=== PATIENT | male | born 1970 | race Caucasian/White ===

== ENCOUNTER 2017-07-20 21:24 | Inpatient (IN) | payer OTHER ==
[~2017-07-20] VITALS: Ht 172.7 cm; Wt 122.0 kg
[~2017-07-20 21:24] MED LIST: ACET-787 PO; BENA20TA PO; METF500T PO; OMEP40EC1 PO; SIMV40TA1 PO; WARF7.5T PO
[2017-07-20 22:17] VITALS: BP 132/103
--- NOTE | 2017-07-20 23:07 | NUR ---
PT TAKEN TO BED 12
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
--- NOTE | 2017-07-20 23:15 | NUR ---
Patient being evaluated by physician at bedside.
[2017-07-20] MEDS ORDERED: NACL 0.9% 1,000 ML IV ONE (23:20)
[2017-07-20] MEDS ORDERED: MORPHINE SULFATE 2 MG/ML SYR IVP ONE (23:20)
[2017-07-20] MEDS ORDERED: ONDANSETRON 4 MG/2 ML VIAL IVP ONE (23:20)
[2017-07-20 23:59] LABS: BASOPHILS # (AUTO) 0.2 K/uL (0.00-0.22); BASOPHILS % (AUTO) 4.5 % (0.0-2.0); EOSINOPHILS # (AUTO) 0.1 K/uL (0-0.4); EOSINOPHILS % (AUTO) 2.3 % (0.0-4.0); HEMATOCRIT 41.3 % (36-52); HEMOGLOBIN 13.6 g/dL (12.0-18.0); LYMPHOCYTES # (AUTO) 2.1 K/uL (2.0-11.5); MEAN CORPUSCULAR HEMOGLOBIN 26 pg (27-31); MEAN CORPUSCULAR HGB CONC 33 g/dL (33-37); MEAN CORPUSCULAR VOLUME 80 fL (80-94); MONOCYTES # (AUTO) 0.4 K/uL (0.8-1.0); MONOCYTES % (AUTO) 7.3 % (1.7-9.3); NEUTROPHILS # (AUTO) 2.1 K/uL (1.8-7.7); NEUTROPHILS % (AUTO) 43.9 % (42.2-75.2); PLATELET COUNT (AUTO) 239 K/uL (140-450); RED BLOOD CELL COUNT(AUTO) 5.17 MIL/uL (4.20-6.10); RED CELL DISTRIBUTION WIDTH 13.2 % (11.6-13.7); WHITE BLOOD COUNT (AUTO) 4.9 K/uL (4.8-10.8)
[2017-07-21 00:16] LABS: ANION GAP 15.6 (8-16); CARBON DIOXIDE 26.3 mmol/L (21-32); CREATININE 0.9 mg/dL (0.7-1.3); POTASSIUM 3.9 mmol/L (3.5-5.1)
[2017-07-21 00:21] LABS: ALBUMIN 3.4 g/dL (3.4-5.0); TOTAL BILIRUBIN 0.4 mg/dL (0.0-1.0)
--- NOTE | 2017-07-21 01:10 | NUR ---
CRITICAL ONRAD; FAX GIVEN TO DR BUNN.
[2017-07-21] MEDS ORDERED: MORPHINE SULFATE 2 MG/ML SYR IVP PRN (01:50)
[2017-07-21] MEDS ORDERED: ONDANSETRON 4 MG/2 ML VIAL IVP PRN (01:50)
--- NOTE | 2017-07-21 02:27 | NUR ---
Patient will be admitted to care of DR NAVA. Admited to MS 119A. Will go to room 119A. Belongings list completed. Report to JAY.
[2017-07-21 02:35] VITALS: BP 136/84
--- NOTE | 2017-07-21 02:35 | NUR ---
RECEIVED PT FROM ER VIA WHEELCHAIR. AAOX4. NO C/O PAIN AT THIS TIME. IV TO LEFT FA #20G, PATENT AND INTACT. INITIAL ASSESSMENT DONE. ORIENTED PT TO ROOM. SAFETY PRECAUTION IN PLACE. CALL LIGHT WITHIN REACH. WILL CONTINUE TO MONITOR.
--- NOTE | 2017-07-21 02:40 | NUR ---
PT REFUSED NGT INSERTION. EXPLAINED TO PT THE USE OF NGT BUT STILL REFUSED.
[2017-07-21] MEDS: NACL 0.9% 1,000 ML IV SCH ×2 (02:54→09:48)
--- NOTE | 2017-07-21 04:55 | NUR ---
PT SLEEPING BUT WAKES EASILY. NO S/S OF PAIN OR DISCOMFORT. CALL LIGHT WITHIN REACH.
--- NOTE | 2017-07-21 06:50 | NUR ---
PAGED DR. NAVA. MADE AWARE THAT PT REFUSED NGT INSERTION. DR. NAVA STATED "IT'S OKAY."
--- NOTE | 2017-07-21 07:00 | NUR ---
ENDORSED PT TO DAY SHIFT NURSE. PT IN STABLE CONDITION.
--- NOTE | 2017-07-21 07:15 | NUR ---
ASSUMED CONTINUITY OF CARE. NO SIGNS AND SYMPTOMS OF ACUTE DISTRESS NOTED. INITIAL ASSESSMENT DONE. EXPLAINED MD ORDER OF NGT. PT. VERBALIZED UNDERSTANDING BUT REFUSED. KEEP COMFORTABLE ON BED. CALL LIGHT WITHIN REACH.
[2017-07-21 08:00] VITALS: BP 123/76
--- NOTE | 2017-07-21 08:00 | NUR ---
Patient's Plan of Care was discussed and reviewed with APPLICATION ARCHITECT MANAGER: BEBE
[2017-07-21] MEDS ORDERED: PANTOPRAZOLE 40 MG TABEC PO SCH (09:00)
--- NOTE | 2017-07-21 09:47 | NUR ---
PATIENT HAS BEEN SCREENED AND CATEGORIZED HIGH NUTRITION RISK. PATIENT WILL BE SEEN WITHIN 1-2 DAYS OF ADMISSION. 07/21/17-07/22/[address]
--- NOTE | 2017-07-21 10:03 | NUR ---
FAXED INITIAL REVIEW TO [facility] [phone] PHONE ADELITA [phone]
--- NOTE | 2017-07-21 11:50 | NUR ---
BACK FROM RADIOLOGY VIA WHEELCHAIR. KEEP COMFORTABLE ON BED.
[2017-07-21 12:00] VITALS: BP 142/85
--- NOTE | 2017-07-21 12:15 | NUR ---
DR. PAREDES CAME, REVIEWED PT. CHART, AND SEEN PT..
--- NOTE | 2017-07-21 14:25 | NUR ---
DR. PAREDES CALLED AND SPOKE TO CHARGE NURSE, AND PER CHARGE NURSE CHERYL FREED -RN PT. CAN BE D/C HOME WITH FOLLOW UP IN [address] PAREDES.
--- NOTE | 2017-07-21 14:47 | NUR ---
INFORMED DR. PAINTER THAT PER DR. PAREDES PT. CAN BE D/C HOME WITH FOLLOW UP APPOINTMENT WITH HIM IN 1 WEEK. GOT TELEPHONE ORDER FROM DR. PAINTER OF D/C HOME WITH FOLLOW UP WITH PCP IN 1 WEEK, AND CONTINUE HOME MEDS, READ BACK AND VERIFIED. INFORMED CHARGE NURSE CHERYL ROLON.
--- NOTE | 2017-07-21 15:00 | NUR ---
EXPLAINED TO PT. ABOUT MD D/C ORDER, D/C INSTRUCTIONS AND TEACHING, DIAGNOSIS, DIET, DR. PAREDES FOLLOW UP IN 1 WEEK, PCP FOLLOW UP IN 1 WEEK, CONTINUATION OF HOME MEDS, PAIN MANAGEMENT TEACHING. VERBALIZED UNDERSTANDING.
--- NOTE | 2017-07-21 15:40 | NUR ---
D/C HOME VIA WHEELCHAIR. AWAKE, ALERT, AND ORIENTED X4. SPEECH CLEAR. NO C/O PAIN. NO SOB, NOTED. IN STABLE CONDITION. INFORMED CHARGE NURSE CHERYL ROLON.
== END 2017-07-21 15:40 | disposition home or self-care (01) | DRG 389 ==
LOC: MED 21:24 → MTU 07-21 01:53
PROVIDERS: ADMIT Hospitalist; ATTEND Internal Medicine
DX: K56.600 Partial intestinal obstruction, unspecified as to cause (principal); Z68.41 Body mass index [BMI] 40.0-44.9, adult; E66.01 Morbid (severe) obesity due to excess calories; E11.9 Type 2 diabetes mellitus without complications; K59.00 Constipation, unspecified; E78.00 Pure hypercholesterolemia, unspecified; I10 Essential (primary) hypertension; Z88.1 Allergy status to other antibiotic agents; Z88.0 Allergy status to penicillin; E78.5 Hyperlipidemia, unspecified; Z98.1 Arthrodesis status
CPT/HCPCS: 36415; 71045; 74250; 80053; 83605; 85025; 85610; 85730; 87040; 87081; 93005; 96361; 96374; 96375; 99285; J2270; J2405; J7030; Q0092

== ENCOUNTER 2018-02-28 15:08 | Emergency (ER) | payer OTHER ==
[~2018-02-28] VITALS: Ht 172.7 cm; Wt 122.5 kg
--- NOTE | 2018-02-28 15:15 | NUR ---
patient ambulated to er bed 1
[2018-02-28 15:18] VITALS: BP 152/87
--- NOTE | 2018-02-28 15:24 | NUR ---
PT C/O RLQ ABD PAIN 10/10 RADIATING TO R GROIN X 1 DAY. +N/V. ADMITS TO HEMATURIA. DENIES FEVER, CP SOB. NO OTHER COMPLAINTS. HX: DIABETES, HTN, BLOOD CLOTS, BOWEL OBSTRUCTION MEDS: ELOQUIS, NORCO, ATORVASTATIN
[2018-02-28] MEDS ORDERED: NACL 0.9% 500 ML IV ONE ×2 (16:22)
[2018-02-28] MEDS ORDERED: KETOROLAC 30 MG/ML VIAL IVP ONE (16:25)
[2018-02-28] MEDS ORDERED: ONDANSETRON 4 MG/2 ML VIAL IVP ONE (16:25)
--- NOTE | 2018-02-28 17:14 | NUR ---
PT TAKEN TO CT
--- NOTE | 2018-02-28 17:31 | NUR ---
PT BACK FROM CT
[2018-02-28] MEDS ORDERED: fentaNYL 0.05 MG/ML VIAL IVP ONE (18:00)
[2018-02-28 18:23] LABS: BASOPHILS % (AUTO) 0.7 % (0.0-2.0); EOSINOPHILS # (AUTO) 0.1 K/uL (0-0.4); EOSINOPHILS % (AUTO) 1.2 % (0.0-4.0); HEMATOCRIT 42.6 % (36-52); LYMPHOCYTES # (AUTO) 1.6 K/uL (2.0-11.5); LYMPHOCYTES % (AUTO) 28.1 % (20.5-51.1); MEAN CORPUSCULAR HEMOGLOBIN 27 pg (27-31); MEAN CORPUSCULAR HGB CONC 33 g/dL (33-37); MEAN CORPUSCULAR VOLUME 80.8 fL (80-94); MONOCYTES # (AUTO) 0.4 K/uL (0.8-1.0); MONOCYTES % (AUTO) 6.3 % (1.7-9.3); NEUTROPHILS # (AUTO) 3.7 K/uL (1.8-7.7); NEUTROPHILS % (AUTO) 63.7 % (42.2-75.2); PLATELET COUNT (AUTO) 239 K/uL (140-450); RED BLOOD CELL COUNT(AUTO) 5.27 MIL/uL (4.20-6.10); RED CELL DISTRIBUTION WIDTH 13.8 % (11.6-13.7); WHITE BLOOD COUNT (AUTO) 5.8 K/uL (4.8-10.8)
[2018-02-28 18:43] LABS: ANION GAP 12.1 (8-16); CARBON DIOXIDE 25.9 mmol/L (21-32); CREATININE 0.9 mg/dL (0.7-1.3)
[2018-02-28 18:49] LABS: ALBUMIN 3.3 g/dL (3.4-5.0); TOTAL BILIRUBIN 0.4 mg/dL (0.0-1.0)
[2018-02-28 19:01] VITALS: BP 138/78
--- NOTE | 2018-02-28 19:01 | NUR ---
Patient appears to be resting comfortably in bed. Vital Signs within normal limits. Respirations even and unlabored.
--- NOTE | 2018-02-28 19:28 | NUR ---
Patient does not wish to proceed with medical care recommended by . Patient given information related to possible complications, up to and including , which could occur as a result of leaving hospital at this time. Patient verbalizes understanding of risks involved leaving against medical advice. Patient has signed AMA form.
== END 2018-02-28 19:28 | disposition left against medical advice (07) ==
LOC: MED 15:08
DX: K56.600 Partial intestinal obstruction, unspecified as to cause (principal); E11.9 Type 2 diabetes mellitus without complications; I10 Essential (primary) hypertension; Z88.0 Allergy status to penicillin; Z88.1 Allergy status to other antibiotic agents; Z79.899 Other long term (current) drug therapy
CPT/HCPCS: 36415; 71045; 74176; 80053; 81002; 84484; 85025; 85610; 85730; 93005; 96361; 96374; 96375; 99285; J1885; J2405; J3010; J7030; Q0092

== ENCOUNTER 2018-07-26 17:00 | Emergency (ER) | payer OTHER ==
[~2018-07-26] VITALS: Ht 172.7 cm; Wt 121.1 kg
[2018-07-26 18:00] VITALS: BP 140/93
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
[2018-07-26] MEDS ORDERED: NACL 0.9% 1,000 ML IV ONE (18:30)
[2018-07-26] MEDS ORDERED: ACETAMINOPHEN EXTRA STRENGTH 500 MG TAB PO ONE (18:35)
[2018-07-26] MEDS ORDERED: LIDOCAINE 2% 1000 MG/50 ML VIAL INJ ONE (18:40)
--- NOTE | 2018-07-26 19:09 | NUR ---
REPORT GIVEN TO FABIENNE HAY AT THIS TIME FOR CONTINUITY OF CARE.
--- NOTE | 2018-07-26 19:10 | NUR ---
ASSUMED CARE OF PT FROM, FELIBERTO HAY
--- NOTE | 2018-07-26 19:46 | NUR ---
NON ADHERENT DRESSING APPLIED TO R WRIST. PT TOELRATED PROCEDURE WELL.
[2018-07-26 19:54] VITALS: BP 137/89
== END 2018-07-26 19:54 | disposition home or self-care (01) ==
LOC: MED 17:00
DX: S51.811A Laceration without foreign body of right forearm, initial encounter (principal); E11.65 Type 2 diabetes mellitus with hyperglycemia; I10 Essential (primary) hypertension; W22.8XXA Striking against or struck by other objects, initial encounter; Y93.89 Activity, other specified; Y92.89 Other specified places as the place of occurrence of the external cause; Y99.0 Civilian activity done for income or pay
CPT/HCPCS: 12002; 90471; 90715; 96360; 99283; J2001; J7030

== ENCOUNTER 2018-08-06 19:39 | Emergency (ER) | payer OTHER ==
[~2018-08-06] VITALS: Ht 172.7 cm; Wt 121.2 kg
[2018-08-06 20:09] VITALS: BP 130/87
--- NOTE | 2018-08-06 20:16 | NUR ---
Patient ambulated to bed 1. RN evaluating patient at bedside.
--- NOTE | 2018-08-06 20:16 | NUR ---
GAVE REPORT TO MADELINE HAY, PT VSS
--- NOTE | 2018-08-06 20:16 | NUR ---
PT AMBULATED TO BED #1
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
--- NOTE | 2018-08-06 22:01 | NUR ---
PATIENT LEFT WITHOUT BEING SEEN BY DR. SINHA. NO FURTHER CARE PROVIDED FOR PATIENT.
== END 2018-08-06 22:01 | disposition left against medical advice (07) ==
LOC: MED 19:39
DX: S61.511D Laceration without foreign body of right wrist, subsequent encounter (principal); W45.8XXD Other foreign body or object entering through skin, subsequent encounter; Z53.21 Procedure and treatment not carried out due to patient leaving prior to being seen by health care provider

== ENCOUNTER 2018-11-15 16:46 | Emergency (ER) | payer OTHER ==
[~2018-11-15] VITALS: Ht 172.7 cm; Wt 120.7 kg
[2018-11-15 16:51] VITALS: BP 139/64
[2018-11-15 17:56] LABS: BASOPHILS # (AUTO) 0.1 K/uL (0.00-0.22); BASOPHILS % (AUTO) 0.8 % (0.0-2.0); EOSINOPHILS # (AUTO) 0.1 K/uL (0-0.4); HEMOGLOBIN 12.7 g/dL (12.0-18.0); LYMPHOCYTES # (AUTO) 1.8 K/uL (2.0-11.5); LYMPHOCYTES % (AUTO) 26.2 % (20.5-51.1); MEAN CORPUSCULAR HEMOGLOBIN 26 pg (27-31); MEAN CORPUSCULAR HGB CONC 34 g/dL (33-37); MEAN CORPUSCULAR VOLUME 77.6 fL (80-94); MONOCYTES # (AUTO) 0.4 K/uL (0.8-1.0); MONOCYTES % (AUTO) 6.5 % (1.7-9.3); NEUTROPHILS # (AUTO) 4.4 K/uL (1.8-7.7); NEUTROPHILS % (AUTO) 64.5 % (42.2-75.2); PLATELET COUNT (AUTO) 301 K/uL (140-450); RED CELL DISTRIBUTION WIDTH 15.2 % (11.6-13.7); WHITE BLOOD COUNT (AUTO) 6.8 K/uL (4.8-10.8)
[2018-11-15 18:05] LABS: ANION GAP 12.4 (8-16); CARBON DIOXIDE 29.4 mmol/L (21-32); POTASSIUM 3.8 mmol/L (3.5-5.1)
[2018-11-15 18:13] LABS: TOTAL BILIRUBIN 0.3 mg/dL (0.0-1.0)
--- NOTE | 2018-11-15 19:30 | NUR ---
PT REPORTS N/V, DENIES FEVER, DIARRHEA OR CONSTIPATION
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
--- NOTE | 2018-11-15 19:30 | NUR ---
PT AMBULATORY TO BED 10
[2018-11-15] MEDS ORDERED: NACL 0.9% 1,000 ML IV ONE (20:07)
[2018-11-15] MEDS ORDERED: ONDANSETRON 4 MG/2 ML VIAL IVP ONE (20:10)
[2018-11-15] MEDS ORDERED: MORPHINE SULFATE 4 MG/ML SYR IVP ONE (20:10)
[2018-11-15 20:18] LABS: APPEARANCE,URINE CLEAR (CLEAR); BILIRUBIN,URINE NEGATIVE (NEGATIVE); BLOOD, URINE 2+ (NEGATIVE); COLOR,URINE YELLOW (YELLOW); LEUKOCYTE ESTERASE ,URINE NEGATIVE (NEGATIVE); NITRITE, URINE NEGATIVE (NEGATIVE); UGLUCOSE TRACE (NEGATIVE)
[2018-11-15 20:27] LABS: RBC,URINE >20 (MANY) /HPF (0-5)
[2018-11-15 20:28] LABS: WBC,URINE 0-5 /HPF (0-5)
--- NOTE | 2018-11-15 20:59 | NUR ---
PT TAKEN TO CT
[2018-11-15 22:26] VITALS: BP 128/88
--- NOTE | 2018-11-15 22:26 | NUR ---
Patient discharged with v/s stable. Written and verbal after care instructions given and explained. Patient alert, oriented and verbalized understanding of instructions. Ambulatory with steady gait. All questions addressed prior to discharge. ID band removed. Patient advised to follow up with PMD. Rx of BENTYL given. Patient educated on indication of medication including possible reaction and side effects. Opportunity to ask questions provided and answered.
== END 2018-11-15 22:26 | disposition home or self-care (01) ==
LOC: MED 16:46
DX: R10.32 Left lower quadrant pain (principal); R11.2 Nausea with vomiting, unspecified; E78.5 Hyperlipidemia, unspecified; E11.9 Type 2 diabetes mellitus without complications; I10 Essential (primary) hypertension; Z86.718 Personal history of other venous thrombosis and embolism; Z98.890 Other specified postprocedural states; Z79.01 Long term (current) use of anticoagulants; Z79.84 Long term (current) use of oral hypoglycemic drugs; Z79.891 Long term (current) use of opiate analgesic; Z79.899 Other long term (current) drug therapy; Z88.0 Allergy status to penicillin
CPT/HCPCS: 36415; 74176; 80053; 81001; 83690; 85025; 87086; 96361; 96374; 96375; 99284; J2270; J2405; J7030

== ENCOUNTER 2019-05-11 21:25 | Emergency (ER) | payer OTHER ==
[~2019-05-11] VITALS: Ht 172.7 cm; Wt 117.9 kg
[~2019-05-11 21:25] MED LIST changes: -OMEP40EC1 PO; +OMEP40EC24 PO
[2019-05-11 21:30] VITALS: BP 147/99
--- NOTE | 2019-05-11 21:32 | NUR ---
PT AMBULATED TO BED 11.
--- NOTE | 2019-05-11 21:33 | NUR ---
PT AMBULATED TO ER BED 11
--- NOTE | 2019-05-11 21:37 | NUR ---
PATIENT PRESENTS TO ED WITH PAIN TO 3RD DIGIT ON LEFT HAND DISTAL END. DENIES NUMBNESS OR TINGLING, STATES PAIN IS THROBING, DENIES TRUAMA. PT STATES PAIN X 3 DAYS, PT HAS HX OF DIABETES. BS 428. . DENIES N/V/D; SKIN IS PINK/WARM/DRY; AAOX4 WITH EVEN AND STEADY GAIT; LUNGS CLEAR BL; HR EVEN AND REGULAR; PT DENIES ANY FEVER, CP, SOB, OR COUGH AT THIS TIME; PATIENT STATES PAIN OF 10/10 AT THIS TIME; VSS; PATIENT POSITIONED FOR COMFORT; HOB ELEVATED; BEDRAILS UP X2; BED DOWN. ER MD MADE AWARE OF PT STATUS.
--- NOTE | 2019-05-11 21:47 | NUR ---
DR. ALMENDAREZ BEDSIDE EVALUATING PT
[2019-05-11] MEDS ORDERED: MORPHINE SULFATE 4 MG/ML SYR IM ONE (21:50)
--- NOTE | 2019-05-11 22:21 | NUR ---
PT STATES PAIN FEELS BETTER AFTER MORPHINE. PT DRIVING PT HOME. PT APPEARS TO BE IN MILD DISTRESS. Patient discharged with v/s stable. Written and verbal after care instructions given and explained. Patient alert, oriented and verbalized understanding of instructions. Ambulatory with steady gait. All questions addressed prior to discharge. ID band removed. Patient advised to follow up with PMD. Rx of MOTRIN, KEFLEX, NORCO AND BACTRIM given. Patient educated on indication of medication including possible reaction and side effects. Opportunity to ask questions provided and answered. ALLOWED TIME ASK QUESTIONS ALL QUESTIONS ANSWERED.
[2019-05-11 22:25] VITALS: BP 146/92
== END 2019-05-11 22:21 | disposition home or self-care (01) ==
LOC: MED 21:25
DX: L03.012 Cellulitis of left finger (principal); E11.9 Type 2 diabetes mellitus without complications; I10 Essential (primary) hypertension; Z88.0 Allergy status to penicillin; Z98.890 Other specified postprocedural states; Z79.84 Long term (current) use of oral hypoglycemic drugs
CPT/HCPCS: 82948; 96372; 99283; J2270

== ENCOUNTER 2019-07-05 16:14 | Observation (INO) | payer OTHER ==
[~2019-07-05] VITALS: Ht 172.7 cm; Wt 107.5 kg
--- NOTE | 2019-07-05 16:20 | NUR ---
AMBULATED TO ER BED 11
[2019-07-05 16:29] VITALS: BP 120/81
--- NOTE | 2019-07-05 16:35 | NUR ---
49/M BIB FAMILY C/O N/V , MID CHEST PAIN & R THIGH PAIN RADIATING TO R GROIN X 3 DAYS. MED HX: BLOOD CLOT SURGERY L THIGH , ABDOMEN SURGERY IN SEPTEMBER 2018. PATIENT STATES PAIN OF 10/10 AT THIS TIME. PATIENT POSITIONED FOR COMFORT; HOB ELEVATED; BEDRAILS UP X2; BED DOWN. ER MD MADE AWARE OF PT STATUS.
[2019-07-05 17:34] LABS: BASOPHILS % (AUTO) 0.4 % (0.0-2.0); EOSINOPHILS # (AUTO) 0.1 K/uL (0-0.4); EOSINOPHILS % (AUTO) 1.3 % (0.0-4.0); HEMATOCRIT 41.4 % (36-52); HEMOGLOBIN 13.4 g/dL (12.0-18.0); LYMPHOCYTES # (AUTO) 1.7 K/uL (2.0-11.5); LYMPHOCYTES % (AUTO) 23.2 % (20.5-51.1); MEAN CORPUSCULAR HEMOGLOBIN 27 pg (27-31); MEAN CORPUSCULAR HGB CONC 33 g/dL (33-37); MEAN CORPUSCULAR VOLUME 82.4 fL (80-94); MONOCYTES # (AUTO) 0.5 K/uL (0.8-1.0); MONOCYTES % (AUTO) 6.1 % (1.7-9.3); NEUTROPHILS # (AUTO) 5.2 K/uL (1.8-7.7); PLATELET COUNT (AUTO) 299 K/uL (140-450); RED BLOOD CELL COUNT(AUTO) 5.02 MIL/uL (4.20-6.10); RED CELL DISTRIBUTION WIDTH 13.7 % (11.6-13.7); WHITE BLOOD COUNT (AUTO) 7.5 K/uL (4.8-10.8)
[2019-07-05] MEDS ORDERED: MORPHINE SULFATE 4 MG/ML SYR IVP ONE ×2 (17:45→22:15)
[2019-07-05 18:01] LABS: ALBUMIN 3.1 g/dL (3.4-5.0); ANION GAP 13.7 (8-16); CARBON DIOXIDE 27.1 mmol/L (21-32); CREATININE 0.8 mg/dL (0.7-1.3); POTASSIUM 3.8 mmol/L (3.5-5.1); TOTAL BILIRUBIN 0.2 mg/dL (0.0-1.0)
[2019-07-05 18:10] LABS: D-DIMER < 100 ng/ml (0-400)
[2019-07-05 18:24] LABS: PROTHROMBIN TIME 8.9 secs (10.8-13.4)
--- NOTE | 2019-07-05 19:19 | NUR ---
Pt report given to FABIENNE HAY. Transfer of care at this time.
--- NOTE | 2019-07-05 20:08 | NUR ---
ASSUMED CARE OF PT.
--- NOTE | 2019-07-05 20:29 | NUR ---
PT LAYING ON BACK, EYES OPEN. VISIBLE RISE AND FALL OF THE CHEST. VSS. WILL CONTINUE TO MONITOR.
--- NOTE | 2019-07-05 22:03 | NUR ---
PT STATES 10/10 BACK PAIN AT THIS TIME. DR SALDIVAR MADE AWARE
--- NOTE | 2019-07-05 22:07 | NUR ---
DR SALDIVAR EXAMINING PT AT THIS TIME
[2019-07-05] MEDS ORDERED: NITROGLYCERIN 2% 1 GM PKT TP ONE (22:15)
[2019-07-05] MEDS ORDERED: ASPIRIN 325 MG TAB PO ONE (22:15)
[2019-07-05] MEDS ORDERED: INSU100S22 SUBQ (22:37)
[2019-07-05] MEDS ORDERED: APIX5TAB PO (22:37)
--- NOTE | 2019-07-05 22:43 | NUR ---
PT BP 132/72 AFTER NITRO PATCH PLACED. PT STATES DECREASE IN PAIN AFTER MEDICATION. 5/10 TOLERABLE BACK PAIN.
--- NOTE | 2019-07-05 23:00 | NUR ---
RECEIVED BEDSIDE REPORT FROM ER NURSE. PATIENT IS AWAKE, ALERT, AND COOPERATIVE. ADMITTING DIAGNOSIS CHEST PAIN. RESPIRATION EVEN UNLABORED ON ROOM AIR. NO DISTRESS NOTED. SKIN IS WARM AND DRY. OPEN WOUND ABDOMEN NOTED. CLEANSE WITH NS AND PAT TO DRY. APPLIED DRESSING. HEART RATE REGULAR. S1&S2 NOTED. LUNGS SOUNDS CLEAR. BOWEL SOUNDS PRESENT IN ALL 4 QUADRANTS. ABDOMEN SOFT AND NON-TENDER. MRSA SCREEN DONE. VITALS WERE TAKEN. ORIENT PATIENT TO THE ROOM, STAFF, AND CALL LIGHT. PLAN OF CARE WAS DISCUSSED. ALL SAFETY MEASURES IN PLACE. BED IS AT LOW POSITION. CALL LIGHT WITHIN REACH AND VERBALIZES ITS USE. WILL CONTINUE TO MONITOR.
--- NOTE | 2019-07-05 23:13 | NUR ---
Patient will be admitted to care of DR BARONE. Admited to TELE. Will go to room 111B. Belongings list completed. Report to SATNAM CRUZ.
[2019-07-05 23:33] VITALS: BP 133/70
[2019-07-06] MEDS ORDERED: LORazepam 1 MG TAB PO PRN (00:10)
[2019-07-06] MEDS ORDERED: ACETAMINOPHEN 325 MG TAB PO PRN (00:10)
[2019-07-06] MEDS ORDERED: NITROGLYCERIN 0.4 MG TAB SL PRN (00:10)
[2019-07-06] MEDS ORDERED: DEXTROSE 50% 50 ML SYR IVP PRN (00:10)
[2019-07-06] MEDS ORDERED: ZOLPIDEM 5 MG TAB PO PRN (00:10)
[2019-07-06] MEDS ORDERED: PROMETHAZINE 25 MG/ML VIAL IVP PRN (00:10)
[2019-07-06 01:09] LABS: AMYLASE 30 U/L (25-115); LIPASE 177 U/L (73-393)
--- NOTE | 2019-07-06 01:11 | NUR ---
CHECKED PATIENT. PATIENT SLEEPING RESPIRATION EVEN UNLABORED ON ROOM AIR. NO DISTRESS NOTED. WILL CONTINUE TO MONITOR.
[2019-07-06] MEDS: HYDROcodone/APAP 10/325 MG 1 TAB TAB PO PRN ×2 (03:29→21:29)
--- NOTE | 2019-07-06 03:30 | NUR ---
VITALS WERE TAKEN. PATIENT COMPLAINED OF BACK PAIN 8/. PRN PAIN MED ADMINISTERED PER ORDER. WILL CONTINUE TO MONITOR.
[2019-07-06 04:00] VITALS: BP 127/88
[2019-07-06] MEDS: SODIUM CHLORIDE FLUSH 10 ML SYR IVF SCH ×3 (05:05→21:22)
[2019-07-06] MEDS: INSULIN LISPRO SLIDING SCALE 100 UNITS/ML VIAL SUBQ PRN ×3 (06:18→21:21)
[2019-07-06] MEDS: BLOOD GLUCOSE MONITORING 1 DEV DEV FS SCH ×4 (06:18→21:22)
[2019-07-06 07:17] LABS: PROTHROMBIN TIME 9.1 secs (10.8-13.4)
--- NOTE | 2019-07-06 07:20 | NUR ---
ENDORSED PATIENT TO DAY SHIFT NURSE. PATIENT IN STABLE CONDITION.
--- NOTE | 2019-07-06 07:22 | NUR ---
RECEIVED PATIENT FROM SHOE ASSOCIATE NURSE. PATIENT IS AAOX4. RESPIRATIONS EVEN AND UNLABORED, ON ROOM AIR. VISIBLE CHEST RISE NOTED. ON TELE MONITORING. PATIENT DENIES CHEST PAIN. ABDOMEN ROUND AND NONTENDER. SKIN WARM AND DRY. OPEN WOUND IN THE ABDOMEN PRESENT. PATIENT DENIES PAIN. PATIENT IS AMBULATORY. BED IN LOW POSITION. CALL LIGHT IS WITHIN REACH. WILL CONTINUE TO MONITOR.
[2019-07-06 08:00] VITALS: BP 122/73
[2019-07-06] MEDS: APIXABAN 2.5 MG TAB PO SCH ×2 (08:29→21:20)
[2019-07-06] MEDS: BENAZEPRIL 20 MG TAB PO SCH (08:29)
--- NOTE | 2019-07-06 08:31 | NUR ---
GIVEN MORNING MEDICATIONS PO. PLATELET IS 299. EXPLAINED TO PATIENT MEDICATIONS. PATIENT VERBALIZED UNDERSTANDING. BED IN LOW POSITION. CALL LIGHT IS WITHIN REACH. WILL CONTINUE TO MONITOR
--- NOTE | 2019-07-06 08:58 | NUR ---
PATIENT HAS BEEN SCREENED AND CATEGORIZED MODERATE NUTRITION RISK. PATIENT WILL BE SEEN WITHIN 3-5 DAYS OF ADMISSION. 07/08/19 07/10/[address]
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
--- NOTE | 2019-07-06 11:06 | NUR ---
PATIENT IS SLEEPING AT THIS TIME. WILL CONTINUE TO MONITOR
--- NOTE | 2019-07-06 11:39 | NUR ---
VITAL SIGNS AND BLOOD SUGAR CHECK: 183. WILL GIVE INSULIN
[2019-07-06 12:00] VITALS: BP 114/76
--- NOTE | 2019-07-06 12:20 | NUR ---
GIVEN INSULIN FOR SUGAR 183 IN THE LEFT INNER ARM. EXPLAINED TO PATIENT MED. PATIENT VERBALIZED UNDERSTANDING. BED IN LOW POSITION. CALL LIGHT IS WITHIN REACH. WILL CONTINUE TO MONITOR
--- NOTE | 2019-07-06 13:33 | NUR ---
FLUSH IV WITH 10ML OF NS. IV FLUSHED WELL. PATIENT DENIES PAIN IN THE INSERTION SITE.
--- NOTE | 2019-07-06 14:45 | NUR ---
PATIENT IS SLEEPING AT THIS TIME BUT OPEN EYES WHEN NAME IS CALLED. PATIENT DENIES CHEST PAIN. BED IN LOW POSITION. CALL LIGHT IS WITHIN REACH. WILL CONTINUE TO MONITOR
--- NOTE | 2019-07-06 14:52 | NUR ---
PATIENT IS AWAKE AND REQUESTED CHICKEN SANDWICH. CALLED [facility]. THEY WILL BRING THE SANDWICH. PT. IS AWARE
[2019-07-06 16:00] VITALS: BP 125/80
--- NOTE | 2019-07-06 17:18 | NUR ---
URINE SAMPLE COLLECTED
[2019-07-06 18:32] LABS: BARBITURATE, URINE NEG. ng/ml (NEG <=200); BENZODIAZEPINE, URINE NEG. ng/mL (NEG <=200); CANNABINOID, URINE NEG. ng/mL (NEG <=50); COCAINE, URINE NEG. ng/mL (NEG <=300); OPIATE, URINE NEG. ng/mL (NEG <=2000); PHENCYCLIDINE SCREEN,URINE NEG. ng/mL (NEG <=25)
[2019-07-06] MEDS: MORPHINE SULFATE 2 MG/ML SYR IVP PRN (19:00)
--- NOTE | 2019-07-06 19:00 | NUR ---
GIVEN MORPHINE FOR PAIN CHEST AND LEG 02/22. EXPLAINED TO PATIENT MED. PATIENT VERBALIZED UNDERSTANDING.
--- NOTE | 2019-07-06 19:18 | NUR ---
ENDORSED PATIENT TO PIECE MAKER NURSE FOR CONTINUITY OF CARE. PATIENT IS IN STABLE CONDITION
--- NOTE | 2019-07-06 19:20 | NUR ---
RECEIVED BEDSIDE REPORT FROM DAY SHIFT NURSE. PATIENT IS AWAKE, ALERT, AND COOPERATIVE. RESPIRATION EVEN UNLABORED ON ROOM AIR. NO DISTRESS NOTED. SKIN IS WARM AND DRY. IV PATENT AND INTACT. SALINE LOCKED. PLAN OF CARE WAS DISCUSSED. ALL SAFETY MEASURES IN PLACE. BED IS AT LOW POSITION. CALL LIGHT WITHIN REACH AND VERBALIZES ITS USE. WILL CONTINUE TO MONITOR.
[2019-07-06 20:00] VITALS: BP 119/83
--- NOTE | 2019-07-06 20:00 | NUR ---
INITIAL ASSESSMENT DONE. VITALS WERE TAKEN. DENIES CHEST PAIN. PATIENT IN STABLE CONDITION. WILL CONTINUE TO MONITOR.
[2019-07-06] MEDS ORDERED: SIMVASTATIN 10 MG TAB PO SCH (21:00)
--- NOTE | 2019-07-06 21:20 | NUR ---
ALL SCHEDULED MEDS WERE GIVEN PER ORDER. NO ASE NOTED. PATIENT BLOOD SUGAR 309. PRN INSULIN GIVEN PER SLIDING SCALE ORDER. WILL CONTINUE TO MONITOR.
--- NOTE | 2019-07-06 21:29 | NUR ---
PATIENT COMPLAINED OF BACK PAIN 01/22. PRN PAIN MED ADMINISTERED PER ORDER. WILL CONTINUE TO MONITOR.
--- NOTE | 2019-07-06 22:45 | NUR ---
CHECKED PATIENT. PATIENT WATCHING TV RESPIRATION EVEN UNLABORED ON ROOM AIR. NO DISTRESS NOTED. WILL CONTINUE TO MONITOR.
--- NOTE | 2019-07-06 23:52 | NUR ---
VITALS WERE TAKEN. PATIENT IN STABLE CONDITION. NO DISTRESS NOTED. WILL CONTINUE TO MONITOR.
[2019-07-07] VITALS: BP 102/42
--- NOTE | 2019-07-07 01:09 | NUR ---
PATIENT HAD A CRITICAL LAB TROPONIN 0.223 NOTIFIED MD. NO NEW ORDERS RECEIVED.
--- NOTE | 2019-07-07 02:10 | NUR ---
CHECKED PATIENT. PATIENT SLEEPING RESPIRATION EVEN UNLABORED ON ROOM AIR. NO DISTRESS NOTED. WILL CONTINUE TO MONITOR.
[2019-07-07 04:00] VITALS: BP 114/58
--- NOTE | 2019-07-07 04:10 | NUR ---
VITALS WERE TAKEN. PATIENT IN STABLE CONDITION. NO DISTRESS NOTED. WILL CONTINUE TO MONITOR.
[2019-07-07] MEDS: SODIUM CHLORIDE FLUSH 10 ML SYR IVF SCH ×2 (05:18→13:15)
[2019-07-07] MEDS: BLOOD GLUCOSE MONITORING 1 DEV DEV FS SCH ×3 (06:19→16:31)
--- NOTE | 2019-07-07 07:04 | NUR ---
ENDORSED PATIENT TO DAY SHIFT NURSE. PATIENT IN STABLE CONDITION.
--- NOTE | 2019-07-07 07:06 | NUR ---
RECEIVED PATIENT FROM RESOURCE AGENT NURSE. PATIENT IS AAOX4. RESPIRATIONS EVEN AND UNLABORED, ON ROOM AIR. VISIBLE CHEST RISE NOTED. ON TELE MONITORING. PATIENT DENIES CHEST PAIN. ABDOMEN ROUND AND NONTENDER. SKIN WARM AND DRY. OPEN WOUND IN THE ABDOMEN PRESENT. ADAPTIC DRESSING IN PLACE. PATIENT DENIES PAIN. SAFETY MEASURES IN PLACE. PATIENT IS AMBULATORY. BED IN LOW POSITION. CALL LIGHT IS WITHIN REACH. WILL CONTINUE TO MONITOR.
[2019-07-07 07:33] LABS: ANION GAP 12.4 (8-16); CARBON DIOXIDE 28.2 mmol/L (21-32); CREATININE 0.8 mg/dL (0.7-1.3); POTASSIUM 3.6 mmol/L (3.5-5.1)
[2019-07-07 07:47] LABS: CHOL/HDL RATIO 4.4 (1-4.5); MAGNESIUM 1.8 mg/dL (1.8-2.4)
--- NOTE | 2019-07-07 08:12 | NUR ---
PATIENT IS EATING BREAKFAST AT THIS TIME. PATIENT DENIES ANY CHEST PAIN OR SOB. BED IN LOW POSITION. CALL LIGHT IS WITHIN REACH. WILL CONTINUE TO MONITOR
[2019-07-07] MEDS: BENAZEPRIL 20 MG TAB PO SCH (08:27)
[2019-07-07] MEDS: APIXABAN 2.5 MG TAB PO SCH (08:29)
--- NOTE | 2019-07-07 08:30 | NUR ---
GIVEN MORNING MEDICATIONS ELIQUIS AND LOTENSIN PO. EXPLAINED TO PATIENT MEDS. PATIENT VERBALIZED UNDERSTANDING. BED IN LOW POSITION. CALL LIGHT IS WITHIN REACH.
[2019-07-07] MEDS: MORPHINE SULFATE 2 MG/ML SYR IVP PRN (09:13)
--- NOTE | 2019-07-07 09:13 | NUR ---
PATIENT C/O OF CHEST PAIN. VITAL SIGNS STABLE. GIVEN MORPHINE VIA IVP. EXPLAINED TO PATIENT MED. PATIENT VERBALIZED UNDERSTANDING. WILL REASSESS.
[2019-07-07 09:53] VITALS: BP 130/80
--- NOTE | 2019-07-07 10:13 | NUR ---
REASSESS PATIENT'S CHEST PAIN. PATIENT DENIES CHEST PAIN. WILL CONTINUE TO MONITOR
--- NOTE | 2019-07-07 11:41 | NUR ---
VITAL SIGNS TAKEN. BLOOD GLUCOSE CHECK: 266. WILL GIVE INSULIN
[2019-07-07 12:00] VITALS: BP 121/78
[2019-07-07 12:15] VITALS: BP 121/78
[2019-07-07] MEDS: INSULIN LISPRO SLIDING SCALE 100 UNITS/ML VIAL SUBQ PRN ×2 (12:49→17:23)
--- NOTE | 2019-07-07 13:00 | NUR ---
CHANGED WOUND DRESSING. CLEANSED WITH NS, PAT DRY, APPLIED ADAPTIC AND STRATOSORB. PATIENT IS COMPLAINING OF ITCHINESS AROUND THE WOUND AREA. EDUCATED PATIENT TO NOT SCRATCH THE WOUND. PATIENT VERBALIZED UNDERSTANDING.
--- NOTE | 2019-07-07 13:00 | NUR ---
TAKEN PICTURE OF THE WOUND.
--- NOTE | 2019-07-07 13:16 | NUR ---
FLUSHED IV WITH 10ML NS SYRINGE. PATIENT DENIES PAIN AT THE SITE. IV FLUSHED WELL
--- NOTE | 2019-07-07 13:35 | NUR ---
PATIENT IS WATCHING TV AT THIS TIME. NO SIGNS OF DISTRESS NOTED. NO CHEST PAIN. WILL CONTINUE TO MONITOR
--- NOTE | 2019-07-07 14:06 | NUR ---
DR. BARONE MADE A VERBAL ORDER FOR TROPONIN STAT AND EKG.
--- NOTE | 2019-07-07 14:19 | NUR ---
TROPONIN LAB IS DRAWN. WILL WAIT FOR THE RESULT
--- NOTE | 2019-07-07 15:03 | NUR ---
EKG DONE BY RT.
--- NOTE | 2019-07-07 15:12 | NUR ---
PATIENT IS AMBULATING AROUND THE UNIT. PATIENT DENIES CHEST PAIN OR DISCOMFORT. WILL CONTINUE TO MONITOR
[2019-07-07 16:00] VITALS: BP 115/89
--- NOTE | 2019-07-07 16:07 | NUR ---
DC PLANNIN YRS OLD WAS ADMITTED FROM HOME WITH A DX OF CHEST PAIN. PT HAS A HX OF DVT,PE, S/P IVC FILTER IN ELIQUIS ,CHRONIC A-FIB . CHEST XR(-) CARDIAC ENZYME (-) EKG SHOWED SR WITH BIFASCICULAR BLOCK . INITIATED CHEST PAIN PROTOCOL , CONTINUE HOME MEDS . DC PLAN TO GO HOME TODAY IF CONTINUE STABLE. CM TO FOLLOW. Addendum: 07/07/19 at 1613 by Paris Diehl CM DC PLANNING : DC HOME IF IT IS OK WITH [employer] COUNSEL[employer]. CONSULTED WITH DR GINGER Calderón AND IS PENDING CM TO FOLLOW. RECEIVED A CALL FROM JOAQUIM LYMAN UPDATED PT'S CONDITION AND DC PLAN. CM TO FOLLOW
--- NOTE | 2019-07-07 16:29 | NUR ---
DR. BARONE IS NOTIFIED REGARDING TROPONIN 0.127. DR. MILES IS TO SEE PATIENT. WILL WAIT FOR
--- NOTE | 2019-07-07 16:30 | NUR ---
BLOOD GLUCOSE CHECK: 193. WILL GIVE INSULIN
--- NOTE | 2019-07-07 17:23 | NUR ---
GIVEN 2 UNITS OF INSULIN IN THE LEFT UA FOR BLOOD GLUCOSE 193. EXPLAINED MED TO PATIENT. PATIENT VERBALIZED UNDERSTANDING. WILL CONTINUE TO MONITOR
--- NOTE | 2019-07-07 18:05 | NUR ---
CALLED DR. MILES REGARDING PT'S CONSULTATION. STATED HE WILL SEE PATIENT TONIGHT. NO EXACT TIME
--- NOTE | 2019-07-07 18:20 | NUR ---
PATIENT IS EATING DINNER AT THIS TIME. NO SIGNS OF DISTRESS NOTED. WILL CONTINUE TO MONITOR
--- NOTE | 2019-07-07 18:24 | NUR ---
DR. MILES IS WITH THE PATIENT EXAMINING HIM. DR. MILES IS DISCHARGING PATIENT.
--- NOTE | 2019-07-07 18:45 | NUR ---
PATIENT SIGNED PAPERWORK. EDUCATED THAT HE NEEDS TO FOLLOW UP WITH THE PCP.
--- NOTE | 2019-07-07 19:00 | NUR ---
DISCHARGE PATIENT. DISCONTINUED IV. REMOVED ID BANDS. AND SON ACCOMPANIED PATIENT ON FOOT. PATIENT DENIES CHEST PAIN OR ANY DISCOMFORT.
== END 2019-07-07 19:00 | disposition home or self-care (01) ==
LOC: MED 16:14 → MTU 22:33
PROVIDERS: ADMIT Internal Medicine Pulmonary Disease; ATTEND Internal Medicine Pulmonary Disease
DX: R07.89 Other chest pain (principal); I48.20 Chronic atrial fibrillation, unspecified; I45.2 Bifascicular block; E11.9 Type 2 diabetes mellitus without complications; Z79.01 Long term (current) use of anticoagulants; Z86.718 Personal history of other venous thrombosis and embolism; Z88.0 Allergy status to penicillin; Z79.4 Long term (current) use of insulin; Z79.899 Other long term (current) drug therapy
CPT/HCPCS: 36415; 71045; 80048; 80053; 80061; 80305; 82150; 82948; 83036; 83690; 83735; 83880; 84484; 85025; 85379; 85610; 85730; 87081; 93005; 96372; 96374; 96376; 99285; G0378; J1815; J2270

== ENCOUNTER 2021-04-05 23:42 | Observation (INO) | payer OTHER, SELFPAY ==
[~2021-04-05] VITALS: Ht 172.7 cm; Wt 153.8 kg
[~2021-04-05 23:42] MED LIST changes: -ACET-787 PO; +APIX5TAB PO; +HYDR-5191 PO; +INSU100S22 SUBQ; -METF500T PO; -WARF7.5T PO
[2021-04-05 23:46] VITALS: BP 145/110
--- NOTE | 2021-04-05 23:52 | NUR ---
to bed ambulatory
[2021-04-06] MEDS ORDERED: ENOXAPARIN 120 MG/0.8 ML SYR SUBQ ONE (00:20)
[2021-04-06] MEDS ORDERED: NITROGLYCERIN 2% 1 GM PKT TP ONE (00:20)
[2021-04-06] MEDS ORDERED: MORPHINE SULFATE 4 MG/ML SYR IVP ONE ×2 (00:20→03:35)
--- NOTE | 2021-04-06 00:33 | NUR ---
51 YO/M BIB SELF W C/O CHEST PAIN 10/10 RADIATING TO L ARM, CONSTANT, PRESSURE/SHARP WORSENS W ACTIVITY, IMPROVES UPON RESTING. +SOB, +ABDOMINAL PAIN, +BLOODY STOOLS. PT DENIES N/V, DIARRHEA, CONSTIPATION. S1S2 PRESENT, CAP REFIL <3 SEC, +2 RADIAL PULSES, LUNG SOUNDS CLEAR THROUGHOUT, BOWEL SOUNDS PRESENT, ABDOMEN SOFT NON TENDER. VSS. PATIENT LAYING IN BED LOCKED IN LOWEST POSITION W X2 SIDERAILS UP FOR PT SAFETY. BREATHING EVEN AND UNLABORED. NAD NOTED. WILL CONTINUE TO MONITOR. PMH: HTN, DIABETES, AFIB, SLEEP APNEA, HIGH CHOLESTEROL, VENOUS BYPASS ALLERGIES: PENICILLINS
[2021-04-06 00:57] LABS: BASOPHILS % (AUTO) 0.3 % (0.0-2.0); EOSINOPHILS # (AUTO) 0.1 K/uL (0-0.4); EOSINOPHILS % (AUTO) 2.2 % (0.0-4.0); HEMATOCRIT 40.2 % (36-52); HEMOGLOBIN 13.3 g/dL (12.0-18.0); LYMPHOCYTES # (AUTO) 1.7 K/uL (2.0-11.5); LYMPHOCYTES % (AUTO) 27.4 % (20.5-51.1); MEAN CORPUSCULAR HEMOGLOBIN 28 pg (27-31); MEAN CORPUSCULAR HGB CONC 33 g/dL (33-37); MEAN CORPUSCULAR VOLUME 83.3 fL (80-94); MONOCYTES # (AUTO) 0.5 K/uL (0.8-1.0); MONOCYTES % (AUTO) 7.8 % (1.7-9.3); NEUTROPHILS # (AUTO) 3.9 K/uL (1.8-7.7); NEUTROPHILS % (AUTO) 62.3 % (42.2-75.2); PLATELET COUNT (AUTO) 268 K/uL (140-450); RED BLOOD CELL COUNT(AUTO) 4.82 MIL/uL (4.20-6.10); RED CELL DISTRIBUTION WIDTH 14.5 % (11.6-13.7); WHITE BLOOD COUNT (AUTO) 6.2 K/uL (4.8-10.8)
[2021-04-06] MEDS ORDERED: HYDROcodone/APAP 5/325 MG 1 TAB TAB PO PRN (01:05)
[2021-04-06] MEDS ORDERED: ACETAMINOPHEN 325 MG TAB PO PRN (01:05)
[2021-04-06] MEDS ORDERED: ONDANSETRON 4 MG/2 ML VIAL IVP PRN (01:05)
--- NOTE | 2021-04-06 01:06 | NUR ---
PT REPORTS CHEST PAIN IMPROVEMENT TO 2/10.
[2021-04-06 01:13] LABS: ALBUMIN 3.3 g/dL (3.4-5.0); ANION GAP 13.4 (8-16); CARBON DIOXIDE 26.3 mmol/L (21-32); POTASSIUM 3.7 mmol/L (3.5-5.1); TOTAL BILIRUBIN 0.4 mg/dL (0.0-1.0)
[2021-04-06 01:22] LABS: CREATINE KINASE MB 1.4 ng/mL (0-3.6)
--- NOTE | 2021-04-06 02:28 | NUR ---
PT APPEARS TO BE RESTING W EYE CLOSED, IN L LATERAL POSITION BED LOCKED IN LOWEST POSITION W X2 SIDERAILS UP FOR PT SAFETY. BREATHING EVEN AND UNLABORED. NAD NOTED. WILL CONTINUE TO MONITOR. VSS ON MONITOR.
--- NOTE | 2021-04-06 03:50 | NUR ---
PT REPORTS CHEST PAIN RETURN, DENIES SOB OR OTHER SYMPTOMS. ERMD MADE AWARE. VSS.
--- NOTE | 2021-04-06 05:47 | NUR ---
PT APPEARS TO BE RESTING W EYES CLOSED IN R LATERAL POSITION W BREATHING EVEN AND UNLABORED. NAD NOTED, WILL CONTINUE TO MONITOR. VSS.
--- NOTE | 2021-04-06 05:52 | NUR ---
CALLED SATNAM MILLER FOR REPORT OF PT TRANSFER OF CARE. PER PAUL UNABLE TO TAKE REPORT AT THIS TIME.
--- NOTE | 2021-04-06 07:48 | NUR ---
REPORT CALLED TO SATNAM BRICE FOR TRANSFER OF PT CARE AT THIS TIME.
--- NOTE | 2021-04-06 07:48 | NUR ---
RECEIVED REPORT FROM ER NURSE GATO PT IS AAOX4 WITH COMPLAINS OF CHEST PAIN RADIATING TO THE LEFT ARM, SHARP CONSTANT PRESSURE PAIN, AMBULATORY, ALLERGY TO PENICILLIN, GAVE NITRO, MORPHINE 4 MG IV INTACT ON LEFT HAND SKIN INTACT COVID CLARIBEL NEGATIVE AND INCOMPLETE VACCINATION.
--- NOTE | 2021-04-06 07:55 | NUR ---
Patient will be admitted to care of DR URBINA. Admited to TELEMETRY. Will go to [id number]. Belongings list completed. Report to SATNAM BRICE. TRANSFERED BY 1 EMT, AND SATNAM TABOR.
[2021-04-06 08:00] VITALS: BP 101/62
--- NOTE | 2021-04-06 08:00 | NUR ---
RECEIVED PT VIA GURDIVINA, PT IS ALERT AND AWAKE, AMBULATORY, ASSISTED TO BED, ORIENTED TO ROOM,CHANGE DRESSING AND TOOK VITAL SIGNS, MRSA DONE. SAFETY MEASURES IN PLACE AND CALL LIGHT WITHIN REACH. WILL CONTINUE TO MONITOR.
--- NOTE | 2021-04-06 08:15 | NUR ---
PATIENT HAS BEEN SCREENED AND CATEGORIZED LOW NUTRITION RISK. PATIENT WILL BE SEEN WITHIN 7 DAYS OF ADMISSION. 04/12/[address]
[2021-04-06] MEDS: MORPHINE SULFATE 4 MG/ML SYR IVP PRN ×4 (08:30→21:37)
--- NOTE | 2021-04-06 08:30 | NUR ---
PT COMPLAIN OF CHEST PAIN RADIATING TO THE LEFT UPPER ARM 9/10 PAIN MEDICATION GIVEN. CHECK VS PRIOR TO MEDICATION BP 101/62 NE 76.
[2021-04-06 12:00] VITALS: BP 108/73
--- NOTE | 2021-04-06 12:45 | NUR ---
PT COMPLAINS OF NUMBNESS ON BILATERAL UPPER EXTREMITIES AND CHEST PAIN 10/10. CHECK BLOOD SUGAR 74 MG/DL DR URBINA AWARE AND RECOMMENDED TO GIVE APPLE JUICE BUT STILL ON NPO EXCEPT MEDS.
[2021-04-06] MEDS ORDERED: LOVENOX 1MG/KG Q12H SUBQ SCH (15:10)
--- NOTE | 2021-04-06 15:27 | NUR ---
PATIENT IS AWAKE AND STILL IN PAIN 5/10 PT SEEN BY [facility]DER [employer] COMBINATION. WILL CONTINUE TO MONITOR.
[2021-04-06 16:00] VITALS: BP 121/72
[2021-04-06] MEDS: BLOOD GLUCOSE MONITORING 1 DEV DEV FS SCH ×2 (16:01→20:01)
--- NOTE | 2021-04-06 19:26 | NUR ---
ENDORSED TO NIGHT NURSE NURSE PT IS STABLE
[2021-04-06 20:00] VITALS: BP 118/81
--- NOTE | 2021-04-06 20:02 | NUR ---
Assumed care. A/O x 4. In no acute distress. Accu check done BG = 113. No coverage required. Will continue to monitor.
[2021-04-06] MEDS: carvediloL 12.5 MG TAB PO SCH (21:18)
[2021-04-06] MEDS: ENOXAPARIN 120 MG/0.8 ML SYR SUBQ SCH (21:20)
[2021-04-06] MEDS: ENOXAPARIN 30 MG/0.3 ML SYR SUBQ SCH (21:22)
--- NOTE | 2021-04-06 22:34 | NUR ---
He is in need od Colace. Non has been prescribed to him. Dr. Brown contacted. Adrian Long covering. Awaiting call return.
[2021-04-07] VITALS: BP 147/90
[2021-04-07] MEDS: BLOOD GLUCOSE MONITORING 1 DEV DEV FS SCH ×6 (00:05→20:26)
[2021-04-07] MEDS: MORPHINE SULFATE 4 MG/ML SYR IVP PRN ×5 (01:56→21:35)
[2021-04-07 04:00] VITALS: BP 125/85
--- NOTE | 2021-04-07 07:26 | NUR ---
Pain has been managed around the clock throughout the night. In no acute distress respiratory or otherwise. Care has been endorsed to Capri HAY.
[2021-04-07 07:31] LABS: ALBUMIN 3.2 g/dL (3.4-5.0); ANION GAP 11.6 (8-16); CARBON DIOXIDE 29.1 mmol/L (21-32); CREATININE 0.8 mg/dL (0.6-1.3); POTASSIUM 3.7 mmol/L (3.5-5.1); TOTAL BILIRUBIN 0.6 mg/dL (0.0-1.0)
[2021-04-07 08:00] VITALS: BP 132/76
--- NOTE | 2021-04-07 08:01 | NUR ---
RECEIVED PT SLEEPING, ON ROOM AIR , NO UNUSUAL OBSERVATION, CALL LIGHT WITHIN EASY REACH, IV SITE ON LEFT HAND, PT ABLE TO WAKE UP, AAO X4, ORE BUYER AT BEDSIDE TAKING HIS VITAL SIGN, PATIENT PLEASANT.
--- NOTE | 2021-04-07 08:30 | NUR ---
PATIENT BLOOD SUGAR 64, PATIENT AT THIS TIME, ORANGE GIVEN , WILL RECHECK BLOOD SUGAR AGAIN.
[2021-04-07] MEDS: DOCUSATE SODIUM 100 MG GELCAP PO SCH (08:52)
[2021-04-07] MEDS: carvediloL 12.5 MG TAB PO SCH ×2 (08:53→21:00)
[2021-04-07] MEDS: ENOXAPARIN 120 MG/0.8 ML SYR SUBQ SCH ×2 (08:58→20:34)
[2021-04-07] MEDS: ENOXAPARIN 30 MG/0.3 ML SYR SUBQ SCH ×2 (09:02→20:35)
--- NOTE | 2021-04-07 09:53 | NUR ---
OFFER TO RECHECK BLOOD SUGAR, PT SAID DO IT LATER, I ATE ANYWAY AND I FEEL GOOD
--- NOTE | 2021-04-07 10:22 | NUR ---
PRUNE JUICE GIVEN
[2021-04-07 12:00] VITALS: BP 118/83
[2021-04-07] MEDS: INSULIN LISPRO SLIDING SCALE 100 UNITS/ML VIAL SUBQ PRN ×2 (12:03→17:44)
--- NOTE | 2021-04-07 12:09 | NUR ---
LUNCH SERVED PT ALERT, AWAKE ORIENTED, NO C/O PAIN, NO SOB NOTED.
--- NOTE | 2021-04-07 12:50 | NUR ---
1 CUP OF PRUNE JUICE GIVEN AGAIN
--- NOTE | 2021-04-07 14:30 | NUR ---
PATIENT AMBULATING IN THE HALLWAY
[2021-04-07 17:51] VITALS: BP 113/56
--- NOTE | 2021-04-07 17:52 | NUR ---
PATIENT AWARE NPO AFTER MIDNIGHT FOR LEXICAN STRESS TEST, PATIENT ORIENTED, CLAIMED I HAVE 2 BM
--- NOTE | 2021-04-07 18:52 | NUR ---
PATIENT TALKING TO HIS FAMILY AT THIS TIME, NO C/O PAIN
--- NOTE | 2021-04-07 19:16 | NUR ---
ENDORSED TO JOSE FOR CONTINUATION OF CARE
[2021-04-07 20:00] VITALS: BP 113/78
[2021-04-08] VITALS: BP 107/40
[2021-04-08] MEDS: MORPHINE SULFATE 4 MG/ML SYR IVP PRN ×2 (01:45→05:49)
[2021-04-08 04:00] VITALS: BP 138/78
[2021-04-08] MEDS: BLOOD GLUCOSE MONITORING 1 DEV DEV FS SCH ×4 (04:48→12:00)
[2021-04-08] MEDS ORDERED: REGADENOSON 0.4 MG/5 ML SYR IV SCH (07:16)
[2021-04-08 07:32] LABS: ALBUMIN 3.2 g/dL (3.4-5.0); ANION GAP 9.8 (8-16); CREATININE 0.8 mg/dL (0.6-1.3); POTASSIUM 3.8 mmol/L (3.5-5.1); TOTAL BILIRUBIN 0.5 mg/dL (0.0-1.0)
[2021-04-08 08:00] VITALS: BP 132/87
--- NOTE | 2021-04-08 08:00 | NUR ---
RECEIVED REPORT FROM CLINICAL PHYSICIAN ASSISTANT FOR CONTINUITY OF CARE. PATIENT ALERT AWAKE ORIENTED X4, NOT IN ANY DISTRESS NOTED. DENIES CHEST PAIN. NPO OBSERVED FOR LEXISCAN STRESS TEST.WITH [place] DRY AND INTACT. ON MONITOR SHOWS SR W/ BBB. CALL LIGHT WITHIN REACH NEEDS ATTENDED, WILL CONTINUE TO MONITOR.
--- NOTE | 2021-04-08 08:30 | NUR ---
[employer] HERE TO INJECT THE DYE, PATIENT IS REFUSING TO HAVE A TEST, HE SAID THAT HE HAD THE PROCEDURE AT [facility] [address] URBINA MADE AWARE AND DR. CABA. WILL CONTINUE TO MONITOR.
[2021-04-08] MEDS: DOCUSATE SODIUM 100 MG GELCAP PO SCH (08:33)
[2021-04-08] MEDS: ENOXAPARIN 30 MG/0.3 ML SYR SUBQ SCH (08:34)
[2021-04-08] MEDS: ENOXAPARIN 120 MG/0.8 ML SYR SUBQ SCH (08:34)
[2021-04-08] MEDS: carvediloL 12.5 MG TAB PO SCH ×2 (08:35→10:44)
--- NOTE | 2021-04-08 08:53 | NUR ---
DC PLANNING: ORDERS RECEIVED FOR PATIENT TO GO TO [place] TO HAVE HEART CATH, PATIENT IS INSURED THROUGH [employer], CLINICAL PACKET FAXED TO BONY AT [facility] TO START PROCESS TO SET UP AT A CONTRACTED HOSPITAL. JESSI WILL FOLLOW FOR NEEDS. Addendum: 04/08/21 at 1208 by Desi Phelps CM DC PLANNING: JESSI SPOKE WITH THE ATTENDING MD REGARDING DC PLANNING AND TRANSFERRING THE PATIENT FOR A CARDIAC CATH, HE STATES THAT THE BUSINESS RELATIONSHIP MANAGER RECOMMENDS THAT HE FOLLOW UP OUTPATIENT FOR ANY PROCEDURES, JESSI SPOKE WITH BONY AT [facility] TO LET HIM KNOW. THE PATIENT LIVES IN A SECOND FLOOR APARTMENT WITH HIS NEPHEW, NIECE AND SISTER IN LAW, AND SEE HIS HIS PCP DR CANNON REGULARLY. HE IS DIABETIC BUT DOES NOT YET HAVE A GLUCOMETER, AND HAS DME OF A FWW WITH [employer]. HE HAS NO H/O OF HOME HEALTH AND HAS INCOME OF crobo AND FOOD STAMPS. HE IS INDEPENDENT WITH AMBULATION AND ADL'S, AND HIS FAMILY DRIVES HIM TO HIS APPOINTMENTS HE DOESN'T DRIVE. HE STATES HE HAS AN APPOINTMENT WITH DR CANNON TOMORROW TO FOLLOW UP ON HIS DIABETES AND TO GET A PRESCRIPTION FOR HIS GLUCOMETER. DC PLAN IS TO RETURN HOME WITH FAMILY LATER TODAY, CM WILL FOLLOW FOR NEEDS.
[2021-04-08] MEDS ORDERED: ASPIRIN 325 MG TABEC PO SCH (10:40)
[2021-04-08] MEDS ORDERED: ISOSORBIDE MONONITRATE 30 MG TABER PO SCH (10:40)
[2021-04-08] MEDS ORDERED: METOPROLOL SUCCINATE 50 MG TABER PO SCH (10:40)
[2021-04-08] MEDS ORDERED: ECOTRIN 81 MG TABEC PO SCH (10:50)
[2021-04-08] MEDS ORDERED: ASPI-1856 PO (11:06)
[2021-04-08] MEDS ORDERED: ISOS30TE68 PO (11:06)
[2021-04-08] MEDS ORDERED: METO50TE2 PO (11:06)
[2021-04-08 12:00] VITALS: BP 135/94
--- NOTE | 2021-04-08 12:00 | NUR ---
IV REMOVED AND HEART MONITOR. DC PAPERS SIGNED AND PRESCRIPTION GIVEN AND VERBALIZED UNDERSTANDING.
--- NOTE | 2021-04-08 12:40 | NUR ---
PATIENT DC VIA WHEELCHAIR WITH DC INSTRUCTION AND NEW PRESCRIPTION GIVEN AND VERBALIZED UNDERSTANDING. IN STABLE CONDITION.
[2021-04-08] MEDS ORDERED: APIXABAN 2.5 MG TAB PO SCH (21:00)
[2021-04-09] MEDS ORDERED: ECOTRIN 81 MG TABEC PO SCH (09:00)
== END 2021-04-08 12:40 | disposition home or self-care (01) ==
LOC: MED 04-06 00:05 → MTU 04-06 01:04 → UNDOADMIN 04-06 01:04 → MTU 04-06 07:55
PROVIDERS: ADMIT Student in an Organized Health Care Education/Training Program; ATTEND Student in an Organized Health Care Education/Training Program
DX: I25.110 Atherosclerotic heart disease of native coronary artery with unstable angina pectoris (principal); Z20.822 Contact with and (suspected) exposure to COVID-19; R07.89 Other chest pain; I48.91 Unspecified atrial fibrillation; I21.4 Non-ST elevation (NSTEMI) myocardial infarction; I25.9 Chronic ischemic heart disease, unspecified; I45.10 Unspecified right bundle-branch block; I10 Essential (primary) hypertension; E78.5 Hyperlipidemia, unspecified; G47.33 Obstructive sleep apnea (adult) (pediatric); E11.9 Type 2 diabetes mellitus without complications; E66.9 Obesity, unspecified; Z79.899 Other long term (current) drug therapy; Z88.0 Allergy status to penicillin
CPT/HCPCS: 36415; 71045; 80053; 80061; 82550; 82553; 82948; 83880; 84484; 85025; 85379; 87081; 87426; 93005; 96372; 96374; 96375; 96376; 99291; G0378; J1650; J2270; J2785; Q0092